=== PATIENT | female | born 1970 | race Caucasian/White ===

== ENCOUNTER 2016-11-24 16:03 | Emergency (ER) | payer MEDICAID ==
[~2016-11-24] VITALS: Ht 160 cm; Wt 60.0 kg
[~2016-11-24 16:03] MED LIST: OFLO1DRO8 LEFT EYE; TOBRA.3%O LEFT EYE
[2016-11-24 16:05] VITALS: BP 160/83; PULSE 72; RESP 20; TEMP 97.5; O2SAT 99
--- NOTE | 2016-11-24 16:11 | PD ---
Physical Exam Date Seen by Provider: November 24, 2016 Time Seen by Provider: 16:09 Narrative 46 year old female presents to the emergency department for evaluation of erythematous left eye. She reports history of eye infections. She has been using TobraDex and Ocuflox for 1 week with worsening symptoms. She reports sensitivity to light and mild blurry vision. Vital signs reviewed. Patient waiting bed placement. Data Data Last Documented VS Vital Signs Date Time Temp Pulse Resp B/P Pulse Ox O2 Delivery O2 Flow Rate FiO2 11/24/16 16:05 97.5 72 20 160/83 99 Room Air [facility] Supervised Visit with ADRIA: Lanie Suazo November 24, 2016 16:11
[2016-11-24] MEDS ORDERED: OCUF0.3D LEFT EYE (16:22)
[2016-11-24] MEDS ORDERED: AK-T0.3S LEFT EYE (16:22)
--- NOTE | 2016-11-24 16:22 | PD ---
HPI Chief Complaint: Eye Problems/Injury Time Seen by Provider: 16:18 Travel History International Travel<30 days: No Contact w/Intl Traveler<30days: No Traveled to known affect area: No History of Present Illness HPI 46-year-old female with previous history of conjunctivitis, presents to the ER today because of one week history of left ocular pain, irritation, and thought that it was a conjunctivitis, started using TobraDex and Ocuflox which she had from previous infections, and it is not working after she's tried for several days. She denies fevers or any other symptoms. Modifying Factors: None Associated Signs & Symptoms: Left conjunctival irritation, pain Risk Factors: Previous history of conjunctivitis PFSH Past Medical History Medical History: Denies Significant Hx Diminished Hearing: No Tetanus Vaccination: > 5 Years Influenza Vaccination: No ?: Not LMP: 11/19/16 Past Surgical History Section: Yes Social History Alcohol Use: No Tobacco Use: No Substance Use: No Allergies-Medications (Allergen,Severity, Reaction): Coded Allergies: No Known Allergies (Verified , 11/24/16) Reported Meds & Prescriptions Reported Meds & Active Scripts Active Reported Tobramycin Opth Drops 0.3 % Soln 1 Drop LEFT EYE Q4H Ocuflox Opth Drops (Ofloxacin Opth Drops) 0.3 % Drops 1 Drop LEFT EYE QID Review of Systems Except as stated in HPI: all other systems reviewed are Neg Physical Exam Narrative GENERAL: This is a well-nourished, well-developed middle age white female patient, in no apparent distress. HEAD: Atraumatic. Normocephalic. No temporal or scalp tenderness. EYES: PERRL, EOMI. No scleral icterus. There is significant injection in the left cornea with a small whitish raised area at the left 4 o'clock position of the iris below the pupil area. I do not see any other irregularities in the cornea. Data Data Last Documented VS Vital Signs Date Time Temp Pulse Resp B/P Pulse Ox O2 Delivery O2 Flow Rate FiO2 11/24/16 16:14 75 18 11/24/16 16:05 97.5 160/83 99 Room Air Orders Proparacaine 0.5% Opth Soln (Alcaine 0.5 (11/24/16 16:30) Fluorescein Strip ([id number]-Vsoamh A.T.) (11/24/16 16:30) Chlamydia Culture Not Resp (11/24/16 16:51) MDM Medical Decision Making Medical Screen Exam Complete: Yes Emergency Medical Condition: Yes Medical Record Reviewed: Yes Differential Diagnosis Conjunctivitis versus corneal ulcer Narrative Course Considering the irregular appearing lesion the cornea, the case was discussed with Dr. Bowers who states that this is an example of Phlytenular keratoconjunctivitis and that the patient can be released after Chlamydia culture and treatment can be given for Zithromax topical ocular solution twice a day and doxycycline twice a day for 21 days. Patient is to call his office on Saturday morning. Return for any worsening and I pain, or new symptoms as needed. The plan has been discussed with the patient and she states understanding. Diagnosis Primary Impression: Conjunctivitis of left eye Additional Impression: Keratoconjunctivitis of left eye Referrals: Chata Maria MD Additional Instructions: Call Dr. Bowers on Saturday. Return for any worsening in pain or new symptoms as needed. Med/Other Pt SpecificInfo: Prescription(s) given Scripts Doxycycline Hyclate 100 Mg [id number] Mg PO BID 21 Days Ref 0 Prov:Lyudmila Rouse MD 11/24/16 Azithromycin Opth Drops (Azasite Opth Drops)1% Soln1 Drop LEFT EYE BID #1 BOTTLE Ref 0 Instill 1 drop twice daily (8 to 12 hours apart) x 2 days then 1 drop once daily x 5 days. Prov:Lyudmila Rouse MD 11/24/16 Disposition: 01 DISCHARGE HOME Condition: Stable Lyudmila Rouse MD November 24, 2016 16:22
[2016-11-24] MEDS ORDERED: FLUORESCEIN SOD 1 MG STRIP LEFT EYE ONE (16:30)
[2016-11-24] MEDS ORDERED: PROPARACAINE HCL 0.5% OPHT SOLN 15 ML BTL LEFT EYE ONE (16:30)
[2016-11-24] MEDS ORDERED: AZIT4SOL LEFT EYE (17:01)
[2016-11-24] MEDS ORDERED: DOXY100C PO (17:01)
[2016-11-24] MEDS ORDERED: DOXYCYCLINE HYCLATE 100 MG TAB PO ONE (17:15)
== END 2016-11-24 18:20 | disposition home or self-care (01) ==
LOC: NEPD 16:03
DX: H10.9 Unspecified conjunctivitis (principal); H16.209 Unspecified keratoconjunctivitis, unspecified eye
CPT/HCPCS: 99283